=== PATIENT | female | born 1995 | race Two or more races ===

== ENCOUNTER 2019-07-26 08:18 | Inpatient (IN) | payer BC, MEDICAID ==
[~2019-07-26] VITALS: Ht 160 cm; Wt 90.7 kg
[2019-07-26] MEDS ORDERED: PREN-96 PO (09:57)
[2019-07-26] MEDS ORDERED: FERR-20 PO (09:57)
[2019-07-26] MEDS ORDERED: DERMOPLAST 60ML BOTTLE TOP PRN (10:15)
[2019-07-26] MEDS ORDERED: PHISODERM TOP SOLN 240ML BTL TOP PRN (10:15)
[2019-07-26] MEDS ORDERED: WITCH HAZEL-GLYCERIN PAD TOP PRN (10:15)
[2019-07-26] MEDS ORDERED: LIDOCAINE 2%HCL (LOCAL ANESTH.) INJ 20ML MDV ID PRN (10:15)
[2019-07-26] MEDS ORDERED: LACT. RINGERS/OXYTOCIN 20UNITS 1,000 ML IV SCH (10:15)
[2019-07-26] MEDS: LACTATED RINGER'S 1,000 ML IV SCH ×2 (11:15→18:15)
[2019-07-26 11:18] LABS: Basophils # (auto) 0 10 ^3/uL (0-0.2); Basophils % (auto) 0.3 % (0.0-2.0); Eosinophils # (auto) 0 10 ^3/uL (0-0.8); Eosinophils % (auto) 0.5 % (0.0-7.0); Hematocrit 34.5 % (36.0-46.0); Hemoglobin 11.4 g/dL (12.2-16.2); Lymphocytes # (auto) 1.1 10 ^3/uL (0.4-5.4); Lymphocytes % (auto) 14.9 % (10.0-50.0); Mean Corpuscular Hemoglobin 29.8 pg (28.0-32.0); Mean Corpuscular Hgb Conc. 33.2 g/dL (32.0-36.0); Mean Corpuscular Volume 89.8 fL (80.0-100.0); Monocytes # (auto) 0.5 10 ^3/uL (0-1.3); Neutrophils # (auto) 5.6 10 ^3/uL (1.6-8.6); Neutrophils % (auto) 77.3 % (37.0-80.0); Platelet Count (auto) 221 10^3/uL (140-450); Red Blood Cells 3.84 10^6/uL (4.0-5.20); White Blood Cell 7.2 10^3/uL (4.4-10.8)
[2019-07-26 11:27] LABS: Urine Bacteria FEW /hpf (None Seen); Urine Blood 3+ /uL (Negative); Urine Mucus FEW (None Seen); Urine Specific Gravity 1.022 (1.001-1.035); Urine WBC 11 /hpf (0 - 5)
[2019-07-26 11:39] LABS: INR 0.95 (0.9-1.15); Partial Thromboplastin Time 26.2 sec (23.64-32.05)
[2019-07-26 11:58] LABS: Amphetamine Screen, Urine NEGATIVE (NEGATIVE); Barbiturate Scree,Urine NEGATIVE (NEGATIVE); Benzodiazephine Screen, Urine NEGATIVE (NEGATIVE); Cannabinoid Screen, Urine NEGATIVE (NEGATIVE); Cocaine Screen, Urine NEGATIVE (NEGATIVE); Opiate Scree,Urine NEGATIVE (NEGATIVE); Phencyclidine Screen, Urine NEGATIVE (NEGATIVE)
[2019-07-26 12:04] LABS: Albumin 2.5 g/dL (3.4-5.0); BUN/Creatinine Ratio 13.3; Calcium 8.2 mg/dL (8.5-10.1); Potassium 3.6 mmol/L (3.5-5.1)
[2019-07-26 12:05] LABS: Alcohol, Urine < 3.0 mg/dL (0-10)
[2019-07-26 12:06] LABS: Bilirubin, Total 0.3 mg/dL (0.2-1.0); Total Protein 6.7 g/dL (6.4-8.2)
[2019-07-26] MEDS ORDERED: miSOPROStol 50 MCG per PRE-CUT 1/2 TAB PO PRN (13:45)
[2019-07-26] MEDS ORDERED: BUTORPHANOL TARTRATE 2 MG/1 ML VIAL IV PRN (16:15)
[2019-07-26] MEDS ORDERED: PROMETHAZINE HCL 25 MG/ML 1ML IV PRN (16:15)
[2019-07-26] MEDS ORDERED: LACTATED RINGER'S 500 ML IV ONE (19:08)
[2019-07-26] MEDS ORDERED: LACTATED RINGER'S 1,000 ML IV ONE (19:08)
[2019-07-26] MEDS ORDERED: NALOXONE HCL 0.4 MG/ML VIAL IV ONE (19:15)
[2019-07-26] MEDS ORDERED: ePHEDrine SULFATE 50 MG/ML AMP IV ONE (19:15)
[2019-07-26] MEDS ORDERED: fentaNYL 200mCg/100ml W ROPIVA 100 ML EPI SCH (19:15)
--- NOTE | 2019-07-26 23:00 | NUR ---
Teaching: Reviewed information in [facility] booklet with patient. Discussed benefits of and risks associated with not . Discussed different positions, proper latch, feeding cues, and baby-led . Provided information of medication side effects related to . All questions and concerns addressed at this time. Patient verbalized understanding of information.
[2019-07-27] MEDS: IBUPROFEN 600 MG TAB PO PRN ×4 (00:07→20:34)
--- NOTE | 2019-07-27 00:45 | NUR ---
Ambulation: Patient OOB with standby assistance by RN. Patient ambulated to bathroom with steady gait. Patient unable to void at this time. [facility] teaching provided with returned demonstration by patient. Clean gown provided and bed linen changed. Patient ambulated back to bed with steady gait and no distress noted.
[2019-07-27 03:14] VITALS: BP 122/70
--- NOTE | 2019-07-27 03:22 | NUR ---
Patient ambulated to bathroom with steady gait. Patient able to void 300ml without difficulty. Patient ambulated back to bed with steady gait and no distress noted.
[2019-07-27 07:00] VITALS: BP 110/59
[2019-07-27 11:18] VITALS: BP 104/62
[2019-07-27 15:04] VITALS: BP 110/66
[2019-07-27 19:07] VITALS: BP 109/59
--- NOTE | 2019-07-27 19:07 | NUR ---
IV removal IV DC'd with clean sterile technique, catheter fully intact. Pressure dressing applied to site. Patient tolerated well.
[2019-07-27 22:55] VITALS: BP 113/65
[2019-07-28] MEDS: IBUPROFEN 600 MG TAB PO PRN ×2 (01:38→12:05)
[2019-07-28 03:08] VITALS: BP 101/57
[2019-07-28 07:00] VITALS: BP 112/69
--- NOTE | 2019-07-28 10:08 | NUR ---
Discharge: Discharge instructions given as ordered. Pt encouraged to follow up with PASSENGER CAR UPHOLSTERER APPRENTICE as instructed. All questions and concerns addressed. Patient verbalized understanding. Medication reconciliation completed and copy given to patient. All required/requested vaccines given and copies of vaccinations given to patient. Patient encouraged to prepare to depart unit.
[2019-07-28 11:00] VITALS: BP 110/73
--- NOTE | 2019-07-28 12:10 | NUR ---
Discharge: Patient taken to vehicle ambulating with all personal belongings, accompanied by staff and family member. No distress noted at time of departure, no adverse changes in status since initial assessment.
== END 2019-07-28 12:05 | disposition home or self-care (01) | DRG 807 ==
LOC: LDRP 08:18 → OBSVTOIN 10:15 → LDRP 10:18
PROVIDERS: ADMIT Specialist; ATTEND Specialist
PROC: 3E0R3BZ Introduction of Anesthetic Agent into Spinal Canal, Percutaneous Approach (ICD-10-PCS; principal; 2019-07-26)
PROC: 10E0XZZ Delivery of Products of Conception, External Approach (ICD-10-PCS; 2019-07-26)
PROC: 00HU33Z Insertion of Infusion Device into Spinal Canal, Percutaneous Approach (ICD-10-PCS; 2019-07-26)
PROC: 0W8NXZZ Division of Female Perineum, External Approach (ICD-10-PCS; 2019-07-26)
PROC: 3E0P7VZ Introduction of Hormone into Female Reproductive, Via Natural or Artificial Opening (ICD-10-PCS; 2019-07-26)
DX: O80 Encounter for full-term uncomplicated delivery (principal); Z37.0 Single live birth; Z3A.39 39 weeks gestation of pregnancy; Z20.828 Contact with and (suspected) exposure to other viral communicable diseases
CPT/HCPCS: 36415; 59025; 59409; 62282; 80053; 80307; 81001; 81002; 84112; 85025; 85610; 85730; 86592; 86850; 86900; 86901; 96360; 96361; 96365; 96366; 96374; 96375; G0378; J2590

== ENCOUNTER → 2024-03-05 | Outpatient (CLI) | payer BC ==
[~2024-03-05] MED LIST: FERR325T24 PO; PREN-96 PO
[2024-03-05 12:30] LABS: Basophils # (auto) 0 10 ^3/uL (0-0.2); Basophils % (auto) 0.6 % (0.0-2.0); Eosinophils # (auto) 0.1 10 ^3/uL (0-0.8); Hematocrit 36.5 % (36.0-46.0); Hemoglobin 12.2 g/dL (12.2-16.2); Lymphocytes # (auto) 1.9 10 ^3/uL (0.4-5.4); Mean Corpuscular Hemoglobin 30.8 pg (28.0-32.0); Mean Corpuscular Hgb Conc. 33.5 g/dL (32.0-36.0); Mean Corpuscular Volume 91.9 fL (80.0-100.0); Monocytes # (auto) 0.6 10 ^3/uL (0-1.3); Monocytes % (auto) 8.1 % (0.0-12.0); Neutrophils # (auto) 5.1 10 ^3/uL (1.6-8.6); Neutrophils % (auto) 66.3 % (37.0-80.0); Nucleated Red Blood Cells % 0.1 %; Platelet Count (auto) 274 10^3/uL (140-450); Red Blood Cells 3.97 10^6/uL (4.0-5.20); Red Cell Distribution Width 13.8 % (11.8-14.3); White Blood Cell 7.7 10^3/uL (4.4-10.8)
[2024-03-06 07:06] LABS: RPR Non Reactive (Non Reactive)
[2024-03-07 01:06] LABS: Chlamydia Trachomatis, NAA Negative (Negative); Neisseria gonorrhoeae, NAA Negative (Negative)
[2024-03-08 03:06] LABS: QuantiFERON-TB Gold Plus Negative (Negative)
== END | disposition home or self-care (01) ==
LOC: LAB 11:48
PROVIDERS: ATTEND Obstetrics & Gynecology
DX: Z34.80 Encounter for supervision of other normal pregnancy, unspecified trimester (principal); Z31.430 Encounter of female for testing for genetic disease carrier status for procreative management; N39.0 Urinary tract infection, site not specified; Z20.09 Contact with and (suspected) exposure to other intestinal infectious diseases; Z3A.00 Weeks of gestation of pregnancy not specified
CPT/HCPCS: 36415; 83036; 84144; 84702; 85025; 86592; 86703; 86762; 86850; 86900; 86901; 87086; 87340

== ENCOUNTER 2024-08-20 08:15 | Outpatient (CLI) | payer BC ==
[2024-08-20 08:34] LABS: Hematocrit 31.8 % (36.0-46.0); Hemoglobin 10.6 g/dL (12.2-16.2); Mean Corpuscular Hemoglobin 29.8 pg (28.0-32.0); Mean Corpuscular Volume 89.6 fL (80.0-100.0); Nucleated Red Blood Cells % 0.1 %
== END 2024-08-20 17:00 | disposition home or self-care (01) ==
LOC: LAB 08:15
PROVIDERS: ATTEND Obstetrics & Gynecology
DX: Z34.83 Encounter for supervision of other normal pregnancy, third trimester (principal); Z3A.00 Weeks of gestation of pregnancy not specified; Z79.899 Other long term (current) drug therapy
CPT/HCPCS: 36415; 82951; 83036; 85025

== ENCOUNTER 2024-09-10 14:28 | Outpatient (CLI) | payer BC ==
[2024-09-10 15:10] LABS: Hematocrit 30.3 % (36.0-46.0); Hemoglobin 10.2 g/dL (12.2-16.2); Mean Corpuscular Hemoglobin 30.2 pg (28.0-32.0); Mean Corpuscular Volume 89.3 fL (80.0-100.0); Nucleated Red Blood Cells % 0.1 %
[2024-09-11 19:06] LABS: Chlamydia Trachomatis, NAA Negative (Negative); Neisseria gonorrhoeae, NAA Negative (Negative)
== END 2024-09-10 17:00 | disposition home or self-care (01) ==
LOC: LAB 14:28
PROVIDERS: ATTEND Obstetrics & Gynecology
DX: Z34.80 Encounter for supervision of other normal pregnancy, unspecified trimester (principal); Z72.89 Other problems related to lifestyle; Z3A.00 Weeks of gestation of pregnancy not specified
CPT/HCPCS: 36415; 85025; 86780

== ENCOUNTER 2024-10-02 06:56 | Inpatient (IN) | payer BC ==
[~2024-10-02] VITALS: Ht 160 cm; Wt 86.2 kg
[2024-10-02] MEDS ORDERED: LIDOCAINE 2%HCL (LOCAL ANESTH.) INJ 20ML MDV IJ PRN (07:30)
[2024-10-02] MEDS ORDERED: NALBUPHINE HCL 10 MG/1ml INJECTION IV PRN (07:30)
--- NOTE | 2024-10-02 08:08 | DVHHP2 ---
OB CC & HPI Date Date of Admission: Oct 02, 2024 Patient Identification: : 2 Para: 1 EDC: Oct 13, 2024 EGA: 38wks Chief Complaints: Reason for admission: rupture of membranes Admission Nurse Assessment Rev: No History of Present Complaints pt is admitted for srom clear fld,no vag bleeding with ucs Past Medical History Cardiac: No pertinent Hx Pulmonary: No pertinent Hx Central Nervous System: No pertinent Hx GI: No pertinent Hx Hemotology/Oncology: No pertinent Hx Hepatobiliary: No pertinent Hx Psychiatric: No pertinent Hx Musculoskeletal: No pertinent Hx Rheumotologic: No pertinent Hx Infectious Disease: No peritnent Hx ENT: No pertinent Hx Renal/: No pertinent Hx Endocrine: No pertinent Hx Dermatology: No pertinent Hx Past Surgical History: No pertinent Hx OB History OB History Care: Good Care Ultrasounds: Normal mid trimester US Obstetrical Complications: None Medical Complications: None Allergies: Coded Allergies: NO KNOWN ALLERGIES (Unverified , 05/29/12) Home Meds Reported Medications Ferrous Sulfate (Ferrous Sulfate) 325 Mg Tab, 325 MG PO BIDWM for 30 Days, MG 07/26/19 Vit W/ Ferrous Fumara ( One Daily) Daily Tab, 1 TAB PO DAILY, #90 TAB 3 Refills 07/26/19 Current Medications Current Medications Medications (Trade) Dose Ordered Sig/Freedom Route PRN Reason Start Time Stop Time Status Last Admin Lactated Ringer's 1,000 ml @ 125 mls/hr Q8H IV 10/02/24 07:30 UNV Nalbuphine HCl (Nubain) 10 mg Q4HP PRN IV MODERATE PAIN (4-6 PAIN SCALE) 10/02/24 07:30 UNV Witch Maliha (Tucks) 1 pad PRN PRN TOP PERINEAL AREA DISCOMFORT 10/02/24 07:30 UNV Sodium Lauryl Sulfate (Phisoderm) 240 ml PRN PRN TOP PERINEAL AREA DISCOMFORT 10/02/24 07:30 UNV Benzocaine (Dermoplast) 1 applic PRN PRN TOP PERINEAL AREA DISCOMFORT 10/02/24 07:30 UNV Lidocaine HCl (Xylocaine) 20 ml ONCE PRN IJ PERINEAL AREA DISCOMFORT 10/02/24 07:30 UNV Family & Social History Family/Social History Blood Type: Unknown Rubella: unknown RPR/VDRL: Negative GBS Status: Negative HBsAG: Negative Review of Systems Constitutional: No symptom reported Ears, Nose, & Throat: No symptom reported Eyes: No symptom reported Pulmonary/Respiratory: No symptom reported Cardiovascular: No symptom reported Gastrointestinal: No symptom reported Genitourinary: No symptom reported Musculoskeletal: No symptom reported Skin: No symptom reported Psychiatric: No symptom reported Endocrine: No symptom reported Hemotologic/Lymphatic: No symptom reported OB Admission Exam Physical Exam HEENT: TMs Normal, Fontanelles Normal, Nasal Mucosa Normal, Eyes non-injected, Oropharynx Normal, PERRLA, Moist Membranes, EOMI Heart: Rhythm Normal Lungs: Clear Abdomen: Non tender Extremities: Normal Reflexes: Normal Cervical Dilatation: 4cm Effacement: 50% Station: -1 Membranes: Ruptured Amniotic Fluid: Clear Heart Rate: 130's Accelerations: Accelerations Present Decelerations: No Decelerations Short Term Variability: Present Visual Basic Programmer Variability: Average (6-25) Contractions on Admission: < 5 Minutes Apart Intensity: Moderate OB Plan Plan Admitting Diagnosis: SROM at 38wks in labor Plan: Expectant Management Other Plan: informed consent obtained Visit Coding OBGYN Date of Service: Oct 02, 2024 Billing Provider: ADRYAN WALDEN DO DENTAL LABORATORY TECHNICIAN Common Visit Codes: [id number] OBS CARE (HIGH) DENTAL LABORATORY TECHNICIAN Procedure Codes: 28472-14- NON-STRESS TEST ADRYAN WALDEN DO Oct 02, 2024 08:08
[2024-10-02 08:26] LABS: Hematocrit 32.2 % (36.0-46.0); Hemoglobin 10.7 g/dL (12.2-16.2); Mean Corpuscular Hemoglobin 29.2 pg (28.0-32.0); Mean Corpuscular Volume 87.9 fL (80.0-100.0); Nucleated Red Blood Cells % 0.0 %
[2024-10-02 08:28] LABS: Urine Protein, UAD 1+ (Negative)
[2024-10-02] MEDS ORDERED: LACTATED RINGER'S 1,000 ML IV ONE (08:30)
[2024-10-02 08:38] LABS: INR 0.94 (0.9-1.15); Partial Thromboplastin Time 23.8 SEC (24.5-34.5); Prothrombin Time 10.0 sec (9.3-11.8)
[2024-10-02 08:40] LABS: Amphetamine Screen, Urine Neg (NEGATIVE); Barbiturate Scree,Urine Neg (NEGATIVE); Benzodiazephine Screen, Urine Neg (NEGATIVE); Cannabinoid Screen, Urine Neg (NEGATIVE); Cocaine Screen, Urine Neg (NEGATIVE); Opiate Scree,Urine Neg (NEGATIVE); Phencyclidine Screen, Urine Neg (NEGATIVE)
[2024-10-02 08:42] LABS: Alanine Aminotransferase 10 U/L (7-40); Albumin 4.0 g/dL (3.2-4.8); Anion Gap 11 (5-15); BUN/Creatinine Ratio 10.2 (10.0-20.0); Bilirubin, Total 0.3 mg/dL (0.2-1.0); Glucose 83 mg/dL (74-106); Potassium 3.8 mmol/L (3.5-5.1); Sodium 138 mmol/L (136-145); Total Protein 6.8 g/dL (5.7-8.2)
[2024-10-02 08:51] LABS: Alkaline Phosphatase 205 U/L (46-116); Blood Urea Nitrogen 6 mg/dL (9-23); Calcium 8.6 mg/dL (8.7-10.4); Carbon Dioxide 19 mmol/L (20-31); Chloride 108 mmol/L (98-107)
[2024-10-02] MEDS: LACTATED RINGER'S 1,000 ML IV SCH (09:19)
[2024-10-02] MEDS: ROPIVACAINE HCL 100 ML ONE (09:20)
[2024-10-02] MEDS: WITCH HAZEL-GLYCERIN PAD TOP PRN (09:33)
[2024-10-02] MEDS: PHISODERM TOP SOLN 240ML BTL TOP PRN (09:33)
[2024-10-02] MEDS: DERMOPLAST 60ML BOTTLE TOP PRN (09:33)
[2024-10-02] MEDS ORDERED: METHYLERGONOVINE MALEATE 0.2 MG/ML AMP IM ONE (11:54)
[2024-10-02] MEDS ORDERED: METHYLERGONOVINE MALEATE 0.2 MG/ML AMP IM PRN (13:00)
[2024-10-02] MEDS ORDERED: ONDANSETRON HCL 4 MG/2 ML VIAL IV PRN (13:00)
[2024-10-02] MEDS: LACT. RINGERS/OXYTOCIN 20UNITS 500 ML IV ONE ×2 (13:32)
--- NOTE | 2024-10-02 13:51 | LDN2 ---
Labor and Delivery Note Date 10/02/24 Age 28 2 Para 2 EDC 9-7 EGA 38wks Diagnosis labor,srom Vaginal Delivery: VTX Vacuum Assisted: No Placenta: Spontaneous Sex: Male Apgars 8-9 Nuchal Cord Transected: No Amniotic Fluid: Clear Anesthesia epidural Episiotomy: No Extension: Yes (midline 2nd deg perineal lac) Repaired with 2-0 chromic EBL 300ml Labs Laboratory Tests 03/05/24 11:46: Hepatitis B Surface Antigen Negative, HIV (1&2) Antibody Negative, Rubella Antibody Positive Blood Bank 10/02/24 07:47: Blood Type A POSITIVE Complications none Conditions stable Comments/Significant Med Alejandro spec exam no cxal lac Visit Coding OBGYN Date of Service: Oct 02, 2024 Billing Provider: ADRYAN WALDEN DO H[employer] MEDIA SPECIALIST Common Visit Codes: [id number] OBS CARE (HIGH) HIGH SCHOOL LIBRARY MEDIA SPECIALIST Procedure Codes: 70392-EEC DELIVERY ONLY ADRYAN WALDEN DO Oct 02, 2024 13:51
[2024-10-02 15:15] VITALS: BP 104/67; PULSE 63; RESP 16; TEMP 98.2; O2SAT 96
[2024-10-02] MEDS: ACETAMINOPHEN 325 MG TAB PO PRN (15:37)
[2024-10-02] MEDS ORDERED: ACETAMINOPHEN 325 MG TAB PO ONE (15:39)
[2024-10-02 18:45] VITALS: BP 112/67; PULSE 60; RESP 17; TEMP 98.4; O2SAT 96
[2024-10-02] MEDS: DOCUSATE SOD 100 MG CAP PO SCH (22:08)
[2024-10-02 23:15] VITALS: BP 104/65; PULSE 72; RESP 16; TEMP 98.3; O2SAT 96
[2024-10-03] MEDS: IBUPROFEN 600 MG TAB PO PRN (01:13)
--- NOTE | 2024-10-03 01:32 | DVHPN2 ---
Progress Note Date Seen: Oct 03, 2024 Subjective Patient is sitting up in bed holding baby SUBJECTIVE -Lochia minimal -Tolerating regular diet well. -Ambulating and voiding well w/o feeling lightheaded or dizzy. -Passing flatus and had BM -Breast feeding and planning to combo feed once home - Contraceptive plan: Patient would like to resume taking COCPs when indicated -Desires and requests to be discharged home today (10/03) vital signs Vital Sign Date Time Temp Pulse Resp B/P (MAP) Pulse Ox O2 Delivery O2 Flow Rate FiO2 10/02/24 23:15 98.3 72 16 104/65 (78) 96 98.3 10/02/24 18:45 Room Air Total Intake and Output 10/02/24 10/02/24 10/03/24 15:00 23:00 07:00 Output Total 1000 ml 1100 ml Balance -1000 ml -1100 ml medications Current Medications Medications Dose Ordered Sig/Freedom Route Start Time Stop Time Status Last Admin Dose Admin Lactated Ringer's 1,000 ml @ 125 mls/hr Q8H IV 10/02/24 07:30 10/02/24 09:19 125 MLS/HR Nalbuphine HCl 10 mg Q4HP PRN IV 10/02/24 07:30 Witch Maliha 1 pad PRN PRN TOP 10/02/24 07:30 10/02/24 09:33 1 PAD Sodium Lauryl Sulfate 240 ml PRN PRN TOP 10/02/24 07:30 10/02/24 09:33 240 ML Benzocaine 1 applic PRN PRN TOP 10/02/24 07:30 10/02/24 09:33 1 APPLIC Lidocaine HCl 20 ml ONCE PRN IJ 10/02/24 07:30 Methylergonovine Maleate 0.2 mg Q8HP PRN IM 10/02/24 13:00 10/04/24 12:59 Ibuprofen 600 mg Q6HP PRN PO 10/02/24 13:00 10/03/24 01:13 600 MG Acetaminophen 650 mg Q4HP PRN PO 10/02/24 13:00 10/02/24 19:43 650 MG Ondansetron HCl 4 mg Q4HP PRN IV 10/02/24 13:00 Docusate Sodium 200 mg HS PO 10/02/24 22:00 10/02/24 22:08 200 MG laboratory and microbiology Laboratory Tests 10/02/24 07:47 Test 10/02/24 07:47 Range/Units Serum Glucose 83 74-106 mg/dL Objective OBJECTIVE -A&O x4. No apparent distress. Affect appropriate -Afebrile, VSS -Chest: heart and lung sounds normal. -Breasts: Nipples intact w/o cracks or soreness -Abdomen: normal BS, soft, non-tender, no rebound or guarding, fundus firm @ U- 1, lochia minimal -Perineum: no edema, or erythema, Incision site with sutures intact, edges in good approximation. -Extremities: no edema or tenderness Problems(with codes): (1) (normal spontaneous vaginal delivery) (2) Second degree perineal laceration Assessment/Plan ASSESSMENT -28 yo now ppd #1 s/p doing well. -Blood Type: A+ -Breast feeding -Rubella Immune PLAN -Continue pain management with oral medications as previously ordered -Continue with adequate fluid intake and fiber in diet to continue having regular bowel movements -Encouraged patient to continue taking vitamin and iron -Educated patient on self care and warning signs of PPH, PPD, and pre-eclampsia. Answered all pt questions and concerns -Continue routine care and anticipate discharge today Plan discussed with: Patient, Spouse Visit Coding OBGYN Date of Service: Oct 03, 2024 Billing Provider: CAROL HARDING CNM FOOD ASSEMBLER [employer] Common Visit Codes: [id number] INP/OBS CARE(HIGH) CAROL HARDING CNM Oct 03, 2024 01:32
--- NOTE | 2024-10-03 01:35 | DVHDS2 ---
Obstetrics Discharge Summary Obstetrics Discharge Summary Date of Admission: Oct 02, 2024 Date of Discharge: Oct 03, 2024 Reason For Admission: Onset of Labor Intrapartum Procedures: Spontaneous vaginal deliv Operative Complicat: Laceration (second degree Perineal) Discharge Diagnosis: Term -Delivered Discharge Information: Activity (Unrestricted. Advance as tolerated. Balance activities with rest periods. No heavy lifting, pushing or straining. Pelvic rest x 6 weeks), Diet (Routine regular diet rich in fiber, protein, iron and vitamin C with adequate fluid intake.), Medications (Ibuprofen 600mg every 6 hours as needed for pain. Colace 100mg twice a day as needed to keep bowel movements soft and prevent constipation. Continue Vitamin and iron), Discharge to (Home), Discarge date (10/03/24) Discharge Care Plan Instructions - self care instructions given - emergency signs and symptoms including but not limited to pre-eclampsia precautions and signs of infection, PPH & of PPD reviewed with patient. -Follow up with OB Provider in 2 weeks and again at 6 weeks Visit Coding OBGYN Date of Service: Oct 03, 2024 Billing Provider: CAROL HARDING CNM PRODUCTION GRADER Common Visit Codes: [id number]/OBS DISCH DAY >30MIN CAROL HARDING CNM Oct 03, 2024 01:35
[2024-10-03] MEDS ORDERED: IBU600T PO (01:47)
[2024-10-03] MEDS ORDERED: DOCU-94 PO (01:47)
--- NOTE | 2024-10-03 01:50 | DVHDS2 ---
ASSESSMENT ASSESSMENT Hospital Course Brynn Chatman was admitted on 10/02/24 at 38w3d for SROM. Expectant management. Patient got labor epidural for pain relief. She progressed to 2nd stage of labor and had a with second degree perineal laceration Normal course; meeting milestones w/o any problem or complications. Assessment IUP at 38+ weeks second degree perineal laceration Problems: (1) (normal spontaneous vaginal delivery) (2) Second degree perineal laceration CAROL HARDING CNM Oct 03, 2024 01:49
[2024-10-03 03:25] VITALS: BP 114/71; PULSE 72; RESP 16; TEMP 98.1; O2SAT 96
[2024-10-03 06:41] VITALS: BP 112/72; PULSE 67; RESP 17; TEMP 97.7; O2SAT 97
[2024-10-03 11:24] VITALS: BP 112/73; PULSE 65; RESP 17; TEMP 98; O2SAT 96
== END 2024-10-03 13:53 | disposition home or self-care (01) | DRG 807 ==
LOC: LDRP 06:56 → OBSVTOIN 07:29 → LDRP 09:08
PROVIDERS: ADMIT Obstetrics & Gynecology; ATTEND Obstetrics & Gynecology
PROC: 0KQM0ZZ Repair Perineum Muscle, Open Approach (ICD-10-PCS; principal; 2024-10-02)
PROC: 10E0XZZ Delivery of Products of Conception, External Approach (ICD-10-PCS; 2024-10-02)
DX: O42.92 Full-term premature rupture of membranes, unspecified as to length of time between rupture and onset of labor (principal); Z37.0 Single live birth; O70.1 Second degree perineal laceration during delivery; Z3A.38 38 weeks gestation of pregnancy
CPT/HCPCS: 36415; 59025; 59409; 62282; 80053; 80307; 81001; 84112; 85025; 85610; 85730; 86780; 86803; 86850; 86900; 86901; 94760; 94762; 96365; 96366; G0378; J2590